=== PATIENT | male | born 1935 | race African-American/Black ===

== ENCOUNTER 2018-10-07 12:38 | Emergency (ER) | payer MEDICARE, OTHER ==
[~2018-10-07] VITALS: Ht 180.3 cm; Wt 74.8 kg
[~2018-10-07 12:38] MED LIST: ALBU2.5V8 IH; ASPI-630 PO; AZIT250T PO; BENZ200C47 PO; CIPR500T94 PO; CYAN100T2 PO; DOCU100C28 PO; ESOM40CA PO; GUAI-108 PO; IRON18TA PO; LANS30CA PO; LOSA25TA54 PO; POLY17PO29 PO; PRED-220 PO; PRED20TA PO; Promethazine Hcl/Codeine PO; SENN-80 PO
[2018-10-07 14:42] LABS: BILIRUBIN,URINE NEGATIVE (NEG); CLARITY,URINE CLOUDY; COLOR,URINE YELLOW; NITRITE,URINE NEGATIVE (NEG); PH,URINE 5.5; PROTEIN,URINE NEGATIVE (NEG-TRACE)
[2018-10-07 15:14] LABS: BACTERIA,URINE MODERATE /HPF (0-FEW); WBC,URINE 20-40 /HPF (0-4)
[2018-10-07 15:15] LABS: SQUAMOUS EPITHELIAL CELL,UR MANY /LPF
--- NOTE | 2018-10-07 15:15 | PHYS DOC ---
Past Medical History Past Medical History: Asthma, COPD, Diabetes-Type II, GERD, High Cholesterol, Hypertension Past Surgical History: Appendectomy Alcohol Use: None Drug Use: None Adult General Chief Complaint Chief Complaint: PAIN ON URINATION [facility] HPI Patient is a 82 year old male presented to ER today for evaluation of painful with urination, painful rash on his penis for about 10 days. Patient decided to come to the ER today because the skin fold ON THE TIP OF penis becAme more swollen and painful today. Patient denies any fever, no abdominal pain, no nausea vomiting. Review of Systems Review of Systems Constitutional: Denies fever or chills [] Eyes: Denies change in visual acuity, redness, or eye pain [] HENT: Denies nasal congestion or sore throat [] Respiratory: Denies cough or shortness of breath [] Cardiovascular: No additional information not addressed in HPI [] GI: Denies abdominal pain, nausea, vomiting, bloody stools or diarrhea [] : POSITIVE FOR dysuria AND PENILE RASH, NO hematuria [] Musculoskeletal: Denies back pain or joint pain [] Integument: Denies rash or skin lesions [] Neurologic: Denies headache, focal weakness or sensory changes [] Endocrine: Denies polyuria or polydipsia [] All other systems were reviewed and found to be within normal limits, except as documented in this note. Allergies Allergies Allergies Coded Allergies Type Severity Reaction Last Updated Verified No Known Drug Allergies 06/28/16 No Physical Exam Physical Exam Constitutional: Well developed, well nourished, no acute distress, non-toxic appearance. [] HENT: Normocephalic, atraumatic, bilateral external ears normal, oropharynx moist, no oral exudates, nose normal. [] Eyes: PERRLA, EOMI, conjunctiva normal, no discharge. [] Neck: Normal range of motion, no tenderness, supple, no stridor. [] Cardiovascular:Heart rate regular rhythm, no murmur [] Lungs & Thorax: Bilateral breath sounds clear to auscultation [] Abdomen: Bowel sounds normal, soft, no tenderness, no masses, no pulsatile masses. [] Skin: Warm, dry, no erythema, no rash. [] Back: No tenderness, no CVA tenderness. [] Extremities: No tenderness, no cyanosis, no clubbing, ROM intact, no edema. [] Neurologic: Alert and oriented X 3, normal motor function, normal sensory function, no focal deficits noted. [] Psychologic: Affect normal, judgement normal, mood normal. : HERPETIC LESIONS ON TIP PENIS AND GLAND PENIS. NO PHIMOSIS.. Current Patient Data Vital Signs Vital Signs Date Time Temp Pulse Resp B/P (MAP) Pulse Ox O2 Delivery O2 Flow Rate FiO2 10/07/18 15:35 72 16 126/67 (86) 99 Room Air 10/07/18 14:00 97.5 97.5 Lab Values Laboratory Tests Test 10/07/18 14:21 Urine Collection Type Void Urine Color Yellow Urine Clarity Cloudy Urine pH 5.5 Urine Specific [place] 1.025 Urine Protein Negative mg/dL (NEG-TRACE) Urine Glucose (UA) Negative mg/dL (NEG) Urine Ketones (Stick) Negative mg/dL (NEG) Urine Blood Negative (NEG) Urine Nitrite Negative (NEG) Urine Bilirubin Negative (NEG) Urine Urobilinogen Dipstick 1.0 mg/dL (0.2 mg/dL) Urine Leukocyte Esterase Large (NEG) Urine RBC 1-2 /HPF (0-2) Urine WBC 20-40 /HPF (0-4) Urine Squamous Epithelial Cells Many /LPF Urine Bacteria Moderate /HPF (0-FEW) Urine Mucus Marked /LPF EKG EKG [] Radiology/Procedures Radiology/Procedures [] Course & Med Decision Making Course & Med Decision Making Pertinent Labs and Imaging studies reviewed. (See chart for details) [] Dragon Disclaimer Dragon Disclaimer This electronic medical record was generated, in whole or in part, using a voice recognition dictation system. Departure Departure Impression: Primary Impression: Genital herpes Additional Impression: UTI (urinary tract infection) Disposition: 01 HOME, SELF-CARE Condition: STABLE Referrals: ANA EDWARD MD (PCP) follow up with your doctor next week Patient Instructions: Genital Herpes, Urinary Tract Infection Scripts Hydrocodone/Apap 5-325 (NORCO 5-325 TABLET) 1 Each Tablet 1-2 TAB PO Q4-6HRS, #15 TAB Prov: BOBBY WISDOM DO 10/07/18 Ciprofloxacin Hcl (CIPRO) 500 Mg Tablet 1 TAB PO BID, #14 TAB Prov: BOBBY WISDOM DO 10/07/18 Acyclovir (ACYCLOVIR) 400 Mg Tablet 1 TAB PO TID, #30 TAB Prov: BOBBY WISDOM DO 10/07/18 Problem Qualifiers BOBBY WISDOM DO Oct 07, 2018 15:15
[2018-10-07] MEDS ORDERED: CIPR500T94 PO (15:20)
[2018-10-07] MEDS ORDERED: ACYC400T PO (15:20)
[2018-10-07] MEDS ORDERED: HYDR-3164 PO (15:20)
[2018-10-07 15:35] VITALS: BP 126/67
== END 2018-10-07 15:36 | disposition home or self-care (01) ==
LOC: ER 12:38
DX: A60.01 Herpesviral infection of penis (principal); N39.0 Urinary tract infection, site not specified; J44.9 Chronic obstructive pulmonary disease, unspecified; K21.9 Gastro-esophageal reflux disease without esophagitis; E78.00 Pure hypercholesterolemia, unspecified; I10 Essential (primary) hypertension; E11.9 Type 2 diabetes mellitus without complications; Z90.89 Acquired absence of other organs
CPT/HCPCS: 81001; 87086; 87186; 99283

== ENCOUNTER → 2020-03-19 | Outpatient (CLI) | payer MEDICARE ==
[~2020-03-19] MED LIST changes: +ACYC400T PO; -ALBU2.5V8 IH; -CYAN100T2 PO; +CYAN100T24 PO; +HYDR-3164 PO; +PROVENTIL HFA6.7 GM IH; +SENN-182 PO; -SENN-80 PO
--- NOTE | 2020-03-19 11:42 | KCIC ---
C-spine 3 views INDICATION: Neck pain on left side. Chronic neck pain. COMPARISON: None. FINDINGS: 3 views of the cervical spine show straightening of the cervical spine with minimal retrolisthesis of C2 on C3, and of C5 on C6, and C6 on C7. The bones are well-mineralized and show no fracture or aggressive appearing osseous lesions. Discs show varying degrees of narrowing most conspicuous at C2-C3, C5-C6 and C6-C7. End plate osteophytic spurring is present as well. The facets appear intact. Central canal shows no bony stenosis. Soft tissues show no prevertebral swelling. Odontoid view shows symmetric lateral masses of C1 on C2 with no evidence of an odontoid process fracture. The AP view shows bulky facet hypertrophic change, more conspicuous on the left than on the right. IMPRESSION: C-spine degenerative changes with facet hypertrophy more conspicuous on the left than on the right. More detailed evaluation by CT C-spine myelography or C-spine MRI could be considered if clinically warranted. EXAM: CT Chest without IV contrast INDICATION: Abnormal CT chest 2016, soft tissue density anterior mediastinum. TECHNIQUE: Multi-detector row CT images were acquired from the thoracic inlet through the upper abdomen without the use of IV contrast. Sagittal and coronal images were acquired from the transaxial data. All CT scans performed at this facility utilize dose optimization techniques as appropriate to the exam, including the following: Automated exposure control and adjustment of the mA and/or KV according to patient size (this includes techniques or standardized protocols for targeted exams where dose is indication/reason for exam). COMPARISON: Chest CT without IV contrast of 08/01/2016 FINDINGS: The absence of IV contrast limits evaluation of soft tissue pathology. CARDIOVASCULAR: Ectasia of the ascending thoracic aorta to 4.0 cm. Scattered arterial calcifications in the thoracic aorta. Aortic valvular calcifications. Multivessel coronary calcifications. MEDIASTINUM & TRACI: Low-density ovoid 2.4 x 1.6 cm circumscribed anterior mediastinal mass is unchanged. More inferiorly, superficial to the distal ascending thoracic aorta is an oval 1.7 cm anterior mediastinal mass. LUNGS: Mild centrilobular pattern emphysema. Calcified granuloma right posterior costophrenic angle. PLEURAL SPACE: No pleural effusions or pneumothorax. OSSEOUS & SOFT TISSUE: Unremarkable ABDOMEN: The visualized portions of the upper abdomen are unremarkable. IMPRESSION: There are 2 anterior mediastinal circumscribed oval masses that have not changed significantly since July 2016 and therefore likely benign. Favor thymic cysts. No findings suspicious for metastatic disease. Electronically signed by: Antonia Nur MD (03/19/2020 11:39 AM) [id number]
== END ==
LOC: KCIC CT 10:03
PROVIDERS: ATTEND Family Medicine
DX: M47.812 Spondylosis without myelopathy or radiculopathy, cervical region (principal); E32.8 Other diseases of thymus; I77.810 Thoracic aortic ectasia; I25.10 Atherosclerotic heart disease of native coronary artery without angina pectoris; J43.2 Centrilobular emphysema
CPT/HCPCS: 71250; 72040

== ENCOUNTER → 2021-02-16 | Outpatient (CLI) | payer MEDICARE ==
[~2021-02-16] MED LIST changes: +ACYC-12 PO; -ACYC400T PO; +CYAN100T21 PO; -CYAN100T24 PO
--- NOTE | 2021-02-16 13:32 | RAD ---
US BREAST RT, MG DIGITAL BILAT DIAGNOSTIC MAMMO WITH BRYANT 02/16/2021 1:10 PM INDICATION: Right breast lump. COMPARISON: None available TECHNIQUE: 3D tomosynthesis was performed in CC and MLO projections. 2D views were obtained from the 3D data. CAD was utilized as needed. Targeted sonographic evaluation of the right breast was performe d. FINDINGS: Breast density: Category A: The breasts are almost entirely fatty. Right breast: Dendritic pattern gynecomastia identified in the retroareolar right breast. Targeted so nographic evaluation in the retroareolar region was performed with a triangular hypoechoic mass immed iately deep to the nipple compatible with gynecomastia. Left breast: There are no suspicious microcalcifications, masses or areas of architectural distortion . IMPRESSION: 1. Gynecomastia of the right breast. 2. Negative left mammogram. BI-RADS category: 2; Benign Recommendations: Clinical management recommended. Electronically signed by: Jacinda Webster MD (02/16/2021 1:30 PM) [id number]
== END ==
LOC: MAMMO 12:58
PROVIDERS: ATTEND Family Medicine
DX: N63.41 Unspecified lump in right breast, subareolar (principal); N62 Hypertrophy of breast
CPT/HCPCS: 76641; 77066; G0279; 77062